=== PATIENT | female | born 1960 | race Caucasian/White ===

== ENCOUNTER 2019-01-15 13:28 | Emergency (ER) | payer BC ==
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
--- NOTE | 2019-01-15 13:51 | NUR ---
NOSE CLAMP APPLIED (NO EXTERNAL BLEEDING), REPORTS SHE IS SWALLOWING A LITTLE BIT OF BLOOD PROVIDER AT BEDSIDE EXAMINING
[2019-01-15] MEDS ORDERED: ASPI-496 PO (13:56)
[2019-01-15] MEDS ORDERED: ZOLP10TA PO (13:56)
[2019-01-15] MEDS ORDERED: CITA10TA8 PO (13:56)
--- NOTE | 2019-01-15 14:04 | NUR ---
REPORT TO ANNI PAULA
[2019-01-15] MEDS ORDERED: PHENYLEPHRINE NASAL 1%, 15ML SPRAY ONE ×2 (14:15→14:45)
[2019-01-15] MEDS ORDERED: LIDOCAINE-MPF 1%, 5ML ONE (14:19)
--- NOTE | 2019-01-15 14:28 | NUR ---
PT TO CT W TECH
--- NOTE | 2019-01-15 14:47 | NUR ---
BACK FROM XRAY, EXTERNAL/INTERNAL BLEEDING REMAINS CONTROLLED WITH NOSE CLAMP Addendum: 01/15/19 at 1448 by GABE CORRECTION: BACK FROM CT
[2019-01-15] MEDS ORDERED: ONDANSETRON ODT 4 MG ONE (15:22)
--- NOTE | 2019-01-15 15:27 | NUR ---
PATIENT NOW NAUSEATED-PROVIDER MADE AWARE-MEDICATED PER EMAR WITH [employer]OCHANT[employer]LE PROVIDER TO BEDSIDE-PACKING REMOVED WITH NO BLEEDING NOTED
[2019-01-15] MEDS ORDERED: ONDANSETRON ODT 4 MG PO ONE (15:30)
[2019-01-15] MEDS ORDERED: PHENYLEPHRINE NASAL 1%, 15ML SPRAY NAS PRN (15:30)
--- NOTE | 2019-01-15 15:47 | NUR ---
NAUSEA IMPROVED- PROVIDED WITH FLUIDS/SOLIDS AFTER POC CLARIFIED WITH PROVIDER PATIENT TOLERATING
[2019-01-15 16:21] VITALS: BP 132/78
== END 2019-01-15 16:25 | disposition home or self-care (01) ==
LOC: ED 16:20
DX: S02.2XXB Fracture of nasal bones, initial encounter for open fracture (principal); S00.81XA Abrasion of other part of head, initial encounter; S00.511A Abrasion of lip, initial encounter; W01.0XXA Fall on same level from slipping, tripping and stumbling without subsequent striking against object, initial encounter; Y93.89 Activity, other specified; Y92.89 Other specified places as the place of occurrence of the external cause; Y99.8 Other external cause status
CPT/HCPCS: 70486; 72125; 99284; Q0162